=== PATIENT | male | born 1955 | race Caucasian/White ===

== ENCOUNTER 2017-06-05 11:20 | Observation (INO) | payer BC ==
[2017-06-05] MEDS ORDERED: NITROGLYCERIN (SL) 0.4 MG TAB SL ×2 (12:30→16:30)
[2017-06-05] MEDS: NITROGLYCERIN 2% 1 GM OINT PKT TD (12:57)
[2017-06-05] MEDS: ASPIRIN 81 MG TAB PO (12:57)
[2017-06-05 12:59] LABS: ADD MAN DIFF? NO
[2017-06-05 13:06] LABS: BASOPHILS % 0.3 % (0.0-2.0); EOSINOPHILS # 0.1 10^3/ul (0.0-0.5); EOSINOPHILS % 1.8 % (0.0-7.0); HEMATOCRIT 36.7 % (42.0-52.0); HEMOGLOBIN 12.3 g/dl (14.0-18.0); LYMPHOCYTES # 0.9 10^3/ul (0.8-2.9); LYMPHOCYTES % 22.5 % (15.0-51.0); MEAN CORPUSCULAR HEMOGLOBIN 29.1 pg (29.0-33.0); MEAN CORPUSCULAR HGB CONC 33.5 g/dl (32.0-37.0); MEAN CORPUSCULAR VOLUME 86.8 fl (82.0-101.0); MEAN PLATELET VOLUME 11.1 fl (7.4-10.4); MONOCYTE # 0.3 10^3/ul (0.3-0.9); MONOCYTES % 7.8 % (0.0-11.0); NEUTROPHIL # 2.7 10^3/ul (1.6-7.5); NEUTROPHILS % 67.6 % (39.0-77.0); PLATELET COUNT 102 10^3/UL (140-415); RED BLOOD COUNT 4.23 10^6/ul (4.70-6.10); RED CELL DISTRIBUTION WIDTH 12.8 % (11.5-14.5)
[2017-06-05 13:24] LABS: ANION GAP 13 (8-16); BLOOD UREA NITROGEN 29 mg/dl (7-20); CALCIUM 9.2 mg/dl (8.4-10.2); CARBON DIOXIDE 29 mmol/L (21-31); CHLORIDE 104 mmol/L (97-110); CREATININE 0.78 mg/dl (0.61-1.24); GLUCOSE 89 mg/dl (70-220); POTASSIUM 4.1 mmol/L (3.5-5.1); SODIUM 142 mmol/L (135-144)
[2017-06-05 13:33] LABS: INR 3.45; PROTIME 35.8 Sec (11.9-14.9); PT RATIO 2.8
[2017-06-05 13:34] LABS: PARTIAL THROMBOPLASTIN TIME 51.2 Sec (25.0-35.0)
[2017-06-05 13:38] LABS: TROPONIN-I < 0.012 ng/ml (0.00-0.12)
[2017-06-05] MEDS ORDERED: ACETAMINOPHEN 325 MG TAB PO ×3 (14:00→16:30)
[2017-06-05] MEDS ORDERED: ONDANSETRON 4 MG INJ IV ×2 (14:00→16:30)
[2017-06-05] MEDS ORDERED: BISACODYL (EC) 5 MG TAB PO (16:30)
[2017-06-05] MEDS ORDERED: NACL 0.9% 3 ML SYG IV (16:30)
[2017-06-05] MEDS ORDERED: LORAZEPAM 2 MG INJ IV (16:30)
[2017-06-05] MEDS ORDERED: ZOLPIDEM 5 MG TAB PO (16:30)
[2017-06-05] MEDS ORDERED: DOCUSATE SODIUM 100 MG CAP PO (16:30)
[2017-06-05] MEDS ORDERED: morphine 2 MG INJ IV (16:30)
[2017-06-05 19:10] LABS: CREATINE KINASE 77 IU/L (23-200)
[2017-06-05 19:20] LABS: CK INDEX 0.9
[2017-06-05 19:23] LABS: TROPONIN-I < 0.012 ng/ml (0.00-0.12)
[2017-06-05 19:58] LABS: OCCULT BLOOD STOOL NEGATIVE (NEGATIVE)
[2017-06-05] MEDS: WARFARIN 10 MG TAB PO (20:32)
[2017-06-06 01:19] LABS: CREATINE KINASE 70 IU/L (23-200)
[2017-06-06 01:31] LABS: CK INDEX 0.9; TROPONIN-I 0.015 ng/ml (0.00-0.12)
[2017-06-06 05:57] LABS: ADD MAN DIFF? NO
[2017-06-06 06:02] LABS: BASOPHILS % 0.5 % (0.0-2.0); EOSINOPHILS # 0.1 10^3/ul (0.0-0.5); EOSINOPHILS % 1.9 % (0.0-7.0); HEMATOCRIT 36.6 % (42.0-52.0); HEMOGLOBIN 12.4 g/dl (14.0-18.0); LYMPHOCYTES # 1.2 10^3/ul (0.8-2.9); LYMPHOCYTES % 28.5 % (15.0-51.0); MEAN CORPUSCULAR HEMOGLOBIN 29.3 pg (29.0-33.0); MEAN CORPUSCULAR HGB CONC 33.9 g/dl (32.0-37.0); MEAN CORPUSCULAR VOLUME 86.5 fl (82.0-101.0); MEAN PLATELET VOLUME 10.9 fl (7.4-10.4); MONOCYTE # 0.3 10^3/ul (0.3-0.9); MONOCYTES % 7.5 % (0.0-11.0); NEUTROPHIL # 2.5 10^3/ul (1.6-7.5); NEUTROPHILS % 61.6 % (39.0-77.0); PLATELET COUNT 111 10^3/UL (140-415); RED BLOOD COUNT 4.23 10^6/ul (4.70-6.10); RED CELL DISTRIBUTION WIDTH 12.7 % (11.5-14.5)
[2017-06-06 06:02] LABS: WHITE BLOOD COUNT 4.1 10^3/ul (4.8-10.8)
[2017-06-06 06:25] LABS: ANION GAP 10 (8-16); BLOOD UREA NITROGEN 26 mg/dl (7-20); CALCIUM 8.7 mg/dl (8.4-10.2); CARBON DIOXIDE 31 mmol/L (21-31); CHLORIDE 107 mmol/L (97-110); CREATININE 0.86 mg/dl (0.61-1.24); GLUCOSE 90 mg/dl (70-220); SODIUM 144 mmol/L (135-144)
[2017-06-06] MEDS: LOSARTAN 50 MG TAB PO (09:44)
[2017-06-06] MEDS: ASPIRIN (EC) 81 MG TAB PO (09:44)
[2017-06-06] MEDS: HYDROCHLOROTHIAZIDE 25 MG TAB PO (09:45)
[2017-06-06 13:38] LABS: INR 3.06; PROTIME 32.5 Sec (11.9-14.9); PT RATIO 2.5
== END 2017-06-06 18:24 | disposition home or self-care (01) ==
LOC: E/R 11:20 → MS3 13:34
DX: R07.9 Chest pain, unspecified (principal); I11.0 Hypertensive heart disease with heart failure; I50.9 Heart failure, unspecified; I42.9 Cardiomyopathy, unspecified; D64.9 Anemia, unspecified; E78.5 Hyperlipidemia, unspecified; R42 Dizziness and giddiness; Z95.2 Presence of prosthetic heart valve; Z79.01 Long term (current) use of anticoagulants; Z79.82 Long term (current) use of aspirin
CPT/HCPCS: 36415; 70450; 71045; 80048; 82270; 82550; 82553; 84443; 84484; 85025; 85610; 85730; 93005; 93306; 99285-25

== ENCOUNTER 2018-03-11 18:25 | Emergency (ER) | payer BC ==
[2018-03-11 20:14] LABS: ADD MAN DIFF? NO
[2018-03-11 20:15] LABS: BASOPHILS % 0.5 % (0.0-2.0); EOSINOPHILS # 0.1 10^3/ul (0.0-0.5); EOSINOPHILS % 1.9 % (0.0-7.0); HEMATOCRIT 38.7 % (42.0-52.0); HEMOGLOBIN 13.2 g/dl (14.0-18.0); LYMPHOCYTES # 1.1 10^3/ul (0.8-2.9); LYMPHOCYTES % 25.4 % (15.0-51.0); MEAN CORPUSCULAR HEMOGLOBIN 29.5 pg (29.0-33.0); MEAN CORPUSCULAR HGB CONC 34.1 g/dl (32.0-37.0); MEAN CORPUSCULAR VOLUME 86.4 fl (82.0-101.0); MEAN PLATELET VOLUME 10.7 fl (7.4-10.4); MONOCYTE # 0.3 10^3/ul (0.3-0.9); MONOCYTES % 6.5 % (0.0-11.0); NEUTROPHIL # 2.8 10^3/ul (1.6-7.5); NEUTROPHILS % 65.7 % (39.0-77.0); PLATELET COUNT 131 10^3/UL (140-415); RED BLOOD COUNT 4.48 10^6/ul (4.70-6.10); RED CELL DISTRIBUTION WIDTH 12.4 % (11.5-14.5)
[2018-03-11 20:15] LABS: WHITE BLOOD COUNT 4.3 10^3/ul (4.8-10.8)
[2018-03-11 20:30] LABS: INR 2.08; PROTIME 23.5 Sec (11.9-14.9); PT RATIO 1.8
[2018-03-11 20:44] LABS: ALANINE AMINOTRANSFERASE 34 IU/L (13-69); ALBUMIN 4.3 g/dl (3.3-4.9); ALBUMIN/GLOBULIN RATIO 1.48; ALKALINE PHOSPHATASE 52 IU/L (42-121); ANION GAP 8 (5-13); ASPARTATE AMINO TRANSFERASE 29 IU/L (15-46); BILIRUBIN,INDIRECT 0.2 mg/dl (0-1.1); BILIRUBIN,TOTAL 0.2 mg/dl (0.2-1.3); BLOOD UREA NITROGEN 19 mg/dl (7-20); CALCIUM 9.5 mg/dl (8.4-10.2); CARBON DIOXIDE 32 mmol/L (21-31); CHLORIDE 102 mmol/L (97-110); CREATININE 0.79 mg/dl (0.61-1.24); Estimated GFR > 60 mL/min (>60); GLUCOSE 96 mg/dl (70-220); POTASSIUM 3.7 mmol/L (3.5-5.1); SODIUM 142 mmol/L (135-144); TOTAL PROTEIN 7.2 g/dl (6.1-8.1)
[2018-03-11 20:55] LABS: TROPONIN-I 0.015 ng/ml (0.000-0.120)
== END 2018-03-11 21:44 | disposition home or self-care (01) ==
LOC: E/R 18:25
DX: R07.9 Chest pain, unspecified (principal); M25.512 Pain in left shoulder; I10 Essential (primary) hypertension
CPT/HCPCS: 71045; 80053; 84484; 85025; 85610; 99284-25